=== PATIENT | male | born 1955 | race Caucasian/White ===

== ENCOUNTER → 2016-08-18 | Outpatient (CLI) | payer BC | END | disposition home or self-care (01) | LOC: LABWHC1 12:49 | PROVIDERS: ATTEND Internal Medicine Cardiovascular Disease | DX: I25.10 Atherosclerotic heart disease of native coronary artery without angina pectoris (principal) | CPT/HCPCS: 36415; 83704 ==

== ENCOUNTER → 2017-03-22 | Outpatient (CLI) | payer BC ==
[2017-03-22 13:40] LABS: ALT 32 U/L (21-72); AST 21 U/L (17-59); Creatine Kinase 72 U/L (55-170)
[2017-03-27 13:40] LABS: Large VLDL Particle Number,NMR <1.5 nmol/L (<=2.7)
== END | disposition home or self-care (01) ==
LOC: LABWHC1 12:59
PROVIDERS: ATTEND Internal Medicine Cardiovascular Disease
DX: E78.2 Mixed hyperlipidemia (principal)
CPT/HCPCS: 36415; 82550; 83704; 84450; 84460

== ENCOUNTER → 2018-02-19 | Outpatient (CLI) | payer BC ==
[2018-02-19 13:15] LABS: Blood Urea Nitrogen 21 mg/dL (9-20)
== END | disposition home or self-care (01) ==
LOC: LABWHC1 12:05
PROVIDERS: ATTEND Midwife
DX: E66.9 Obesity, unspecified (principal); Z68.39 Body mass index [BMI] 39.0-39.9, adult
CPT/HCPCS: 36415; 82565; 84520

== ENCOUNTER → 2018-02-20 | Outpatient (CLI) | payer BC ==
--- NOTE | 2018-02-20 22:08 | MR ---
EXAMINATION TYPE: MR lumbar spine wo/w con DATE OF EXAM: 02/20/2018 COMPARISON: CT abdomen pelvis 07/15/2014 HISTORY: Sciatica TECHNIQUE: Multiplanar, multisequence images of the lumbar spine were acquired utilizing [address] gadolinium contrast. L5 appears sacralized. Recommend correlation prior to any intervention. L1-L2: Normal disc appearance without desiccation. No herniation, protrusion or disc bulging. No ca nal stenosis is present. Foramina are patent bilaterally. L2-L3: Posterior broad-based disc bulge causes mild anterior mass effect on the thecal sac. No signif icant central stenosis or foraminal encroachment. L3-L4: Posterior broad-based disc bulge causes anterior mass effect on the thecal sac. There is facet arthropathy with hypertrophy of ligamentum flavum causing only slight central canal stenosis, circum ferential extension of endplate disc complex results in some foraminal encroachment. L4-L5: There is loss of disc height and signal, anterolisthesis grade 1 is present which contributes with circumferential extension of endplate disc complex to cause some mild foraminal encroachment. Th ere is facet arthropathy and broad-based posterior disc bulge may contact the anterior thecal sac, no significant central stenosis. L5-S1: Normal disc appearance without desiccation. No herniation, protrusion or disc bulging. No ca nal stenosis is present. Foramina are patent bilaterally. Lumbar segments are intact. No paraspinal masses are identified. Conus medullaris has a normal appe arance. No abnormal enhancement following contrast administration. IMPRESSION: Degenerative disc disease and facet arthropathy, foraminal encroachment as described. Sacralized L5.
== END | disposition home or self-care (01) ==
LOC: RADMRIMAIN 07:49
PROVIDERS: ATTEND Family Medicine
DX: M51.36 Other intervertebral disc degeneration, lumbar region (principal); M46.86 Other specified inflammatory spondylopathies, lumbar region
CPT/HCPCS: 72158; A9581

== ENCOUNTER → 2018-05-18 | Outpatient (CLI) | payer BC ==
[2018-05-21 17:35] LABS: Large VLDL Particle Number,NMR 3.2 nmol/L (<=2.7)
== END | disposition home or self-care (01) ==
LOC: LABWHC1 11:49
PROVIDERS: ATTEND Internal Medicine Cardiovascular Disease
DX: E78.5 Hyperlipidemia, unspecified (principal)
CPT/HCPCS: 36415; 83704

== ENCOUNTER → 2018-05-25 | Outpatient (CLI) | payer BC ==
--- NOTE | 2018-05-25 07:47 | CT ---
EXAMINATION TYPE: CT sinus wo con DATE OF EXAM: 05/25/2018 COMPARISON: None HISTORY: chronic sinusitis CT DLP: 605.[address] of the paranasal sinuses was performed in the axial and coronal planes. Bone and soft tissue settings are submitted. The paranasal sinuses demonstrate normal aeration and development. Moderate mucosal thickening involving the bilateral maxillary sinuses as well as the ethmoid air cell s. Mild mucosal thickening involving the left frontal sinus and sphenoid sinus. The osteal meatal units are patent bilaterally. The nasal septum is midline. No bony destructive changes are seen within the field of view. IMPRESSION: Mild to moderate chronic pansinusitis.
== END | disposition home or self-care (01) ==
LOC: RADCTMAIN 06:59
PROVIDERS: ATTEND Otolaryngology
DX: J32.4 Chronic pansinusitis (principal)
CPT/HCPCS: 70486

== ENCOUNTER → 2018-06-07 | Outpatient (CLI) | payer BC ==
--- NOTE | 2018-06-07 09:09 | CT ---
EXAMINATION TYPE: CT lumbar spine wo con DATE OF EXAM: 06/07/2018 COMPARISON: HISTORY: Chronic low back pain CT DLP: [address] of the lumbar spine was performed. Bone and soft tissue window settings are submitted as well as coronal and sagittal reconstructions. L1-L2: Normal disc space height. No disc herniation protrusion or central stenosis. No facet joint arthropathy. No evidence for foraminal encroachment. L2-L3: Mild degenerative disc space narrowing. Mild posterior disc bulge. No evidence of herniation p rotrusion or central stenosis. Facet joint arthropathy on the right. L3-L4: Mild degenerative disc space narrowing. Circumferential disc bulge greatest posteriorly. Mild effacement ventral thecal sac. Bilateral lateral recess stenosis suspected. No evidence for central s tenosis or herniation. Mild bilateral foraminal encroachment. L4-L5: Mild to moderate degenerative disc space narrowing. Grade 1 anterolisthesis L4 on L5. Anteroli sthesis measures 4 mm. Posterior disc bulge without evidence of herniation or central stenosis. No ev idence for foraminal encroachment. Moderate facet joint arthropathy. L5-S1: Partial sacralization of the S1. Disc space has a normal appearance. No paraspinal masses are identified. Lumbar segments are free if fracture. IMPRESSION: 1. Degenerative disc space narrowing and disc bulging as noted above.
--- NOTE | 2018-06-07 09:22 | XR ---
EXAMINATION TYPE: XR lumbosacral spine min 4V DATE OF EXAM: 06/07/2018 CLINICAL HISTORY: pain COMPARISON: NONE TECHNIQUE: Frontal, lateral, and oblique images of the lumbar spine are obtained. FINDINGS: There are 5 lumbar type vertebral bodies identified. The lumbar spine shows satisfactory alignment without evidence of acute fracture or dislocation. Vertebral body heights are within normal limits. Moderate to severe degenerative narrowing at L5-S1. Grade 1 anterolisthesis of 4 mm. Severe facet joint arthropathy. Foraminal encroachment. Partial lumbarization of S1 noted. Remaining levels are within normal limits. Ventral spondylosis identified. The overlying soft tissue appears unremar kable. IMPRESSION: No acute fracture or dislocation is seen in the lumbar spine.ICD 10 NO FRACTURE, INITIAL EVALUATION
--- NOTE | 2018-06-07 14:05 | NM ---
EXAMINATION TYPE: NM bone scan whole body DATE OF EXAM: 06/07/2018 COMPARISON: CT scan 06/07/2018 HISTORY: Low back pain Delayed whole-body scanning was performed following the injection of mCi Tc 99m MDP. Images acquired 3 hours post injection. Anterior posterior full body images, bilateral oblique views of the lumbar s pine and thoracic spine were obtained. FINDINGS: photopenic defect involving the right knees compatible with previous surgery. Abnormal uptake involvi ng the right shoulder likely post arthritic or remote trauma. Abnormal uptake involving the feet like ly post arthritic. There is abnormal uptake throughout the cervical, thoracic and lumbar spine which is nonspecific. Upt starr does correspond to degenerative changes seen by recent CT scan. IMPRESSION: 1. Abnormal uptake throughout the vertebral column likely degenerative.
== END | disposition home or self-care (01) ==
LOC: RADCTMAIN 08:00
PROVIDERS: ATTEND Neurological Surgery
DX: M48.061 Spinal stenosis, lumbar region without neurogenic claudication (principal); M51.26 Other intervertebral disc displacement, lumbar region; R93.7 Abnormal findings on diagnostic imaging of other parts of musculoskeletal system
CPT/HCPCS: 72110; 72131; 78306; A9503

== ENCOUNTER → 2019-06-28 | Outpatient (CLI) | payer BC ==
[2019-07-01 18:27] LABS: Large VLDL Particle Number,NMR 3.5 nmol/L (<=2.7)
== END | disposition home or self-care (01) ==
LOC: LABWHC1 12:01
PROVIDERS: ATTEND Internal Medicine Cardiovascular Disease
DX: E78.5 Hyperlipidemia, unspecified (principal)
CPT/HCPCS: 36415; 83704

== ENCOUNTER 2020-01-29 09:31 | Day surgery (SDC) | payer BC ==
[2020-01-27 11:39] VITALS: BMI 32.3
--- NOTE | 2020-01-29 07:48 | P.GSHP ---
History of Present Illness H&P Date: 01/29/20 CHIEF COMPLAINT: Colon screen HISTORY OF PRESENT ILLNESS: The patient is a 64-year-old male who presents for colon screen. Lower endoscopy was offered for further evaluation and management. PAST MEDICAL HISTORY: Please see list. PAST SURGICAL HISTORY: Please see list. MEDICATIONS: Please see list. ALLERGIES: Please see list. SOCIAL HISTORY: No illicit drug use FAMILY HISTORY: No reports of Crohn disease or ulcerative colitis. REVIEW OF ORGAN SYSTEMS: CONSTITUTIONAL: No reports of fevers or chills. PHYSICAL EXAM: VITAL SIGNS: Stable GENERAL: Well-developed pleasant in no acute distress. HEENT: No scleral icterus. Extraocular movements grossly intact. Moist buccal mucosa. NECK: Supple without lymphadenopathy. CHEST: Unlabored respirations. Equal bilateral excursions. CARDIOVASCULAR: Regular rate and rhythm. Distal 2+ pulses. ABDOMEN: Soft, nontender, nondistended. MUSCULOSKELETAL: No clubbing, cyanosis, or edema. ASSESSMENT: 1. Colon screen. PLAN: 1. Recommend proceeding with a lower endoscopy Past Medical History Past Medical History: GERD/Reflux, Hyperlipidemia, Hypertension, Osteoarthritis (OA) Additional Past Medical History / Comment(s): chronic back pain History of Any Multi-Drug Resistant Organisms: None Reported Past Surgical History: Appendectomy, Joint Replacement, Tonsillectomy Additional Past Surgical History / Comment(s): colonoscopy, right knee replaced, nasal surg. Past Anesthesia/Blood Transfusion Reactions: No Reported Reaction Smoking Status: Never smoker Medications and Allergies Home Medications Medication Instructions Recorded Confirmed Type Esomeprazole Magnesium [NexIUM] 40 mg PO DAILY 07/15/14 01/27/20 History Metoprolol Tartrate [Lopressor] 50 mg PO BID 07/15/14 01/27/20 History Atorvastatin [Lipitor] 20 mg PO HS 01/27/20 01/27/20 History Enalapril [Vasotec] 5 mg PO DAILY 01/27/20 01/27/20 History Allergies Allergy/AdvReac Type Severity Reaction Status Date / Time No Known Allergies Allergy Verified 01/27/20 11:36
[~2020-01-29 09:31] MED LIST: LACTATED RINGERS 1,000 ML IV SCH; LIDOCAINE 1% (10MG/ML) FOR IV START INTRADERMA PRN
[2020-01-29 09:52] VITALS: TEMP 97.8
[2020-01-29] MEDS ORDERED: LACTATED RINGERS 1,000 ML IV ONE (09:53)
[2020-01-29] MEDS ORDERED: PROPOFOL 10 MG/ML 20 ML VIAL IV ONE (10:22)
[2020-01-29 10:49] VITALS: RESP 17
[2020-01-29 11:01] VITALS: BP 121/83; PULSE 66
--- NOTE | 2020-01-29 11:03 | P.PCN ---
Date of Procedure: 01/29/20 Description of Procedure: PREOPERATIVE DIAGNOSIS: Colonoscopy screening POSTOPERATIVE DIAGNOSIS: Descending colon polyps Sigmoid colon polyp Sigmoid diverticulosis OPERATION: Colonoscopy to the ileocecal valve and appendiceal orifice, cecum Colonoscopy with cold forceps biopsies SURGEON: Kamille Estrada MD. ANESTHESIA: MAC. INDICATIONS: The patient is an 64-year-old male who presents for colonoscopy screening. Last colonoscopy over 5 years. Benefits and risks were described and informed co nsent was obtained. DESCRIPTION OF PROCEDURE: The patient had undergone Suprep. He had been brought into the operating room and laid in the left lateral decubitus position. After adequate intravenous sedation, the rectum was examined with 2% lidocaine jelly. The prostate was unremarkable. No external hemorrhoids were encountered. The rectal tone was within normal limits. No lesions were palpated in the rectal vault. An Olympus colonoscope was advanced until the cecum, ileocecal valve and appendiceal orifice were clearly viewed. The prep was good. Moderate to severe sigmoid was found. Multiple colonic polyps were found and removed with cold forceps. No evidence of focal colitis was found. Retroflexion of the scope demonstrated grade 1 internal hemorrhoids without active bleeding or inflammation. The colon was desufflated. The patient had tolerated the procedure well. Withdrawal time was over 6 minutes. FINDINGS: Aronchick preparation quality scale 2 (1-5) Internal hemorrhoids, grade 1 No external hemorrhoids. No arteriovenous malformations. Sigmoid diverticulosis, moderate to severe Removal of 3 polyps: - Cold forceps biopsy at 20 cm from the anal verge, 4 mm polyp, sigmoid colon - Cold forceps biopsy at 60 cm from the anal verge x 2, 3 to 5 mm polyp, ascending colon No focal colitis. RECOMMENDATIONS: Repeat colonoscopy 3 years, 2022 Plan - Discharge Summary Discharge Rx Participant: No New Discharge Prescriptions: Continue Metoprolol Tartrate [Lopressor] 50 mg PO BID Esomeprazole Magnesium [NexIUM] 40 mg PO DAILY Enalapril [Vasotec] 5 mg PO DAILY Atorvastatin [Lipitor] 20 mg PO HS Discharge Medication List Esomeprazole Magnesium [NexIUM] 40 mg PO DAILY 07/15/14 [History] Metoprolol Tartrate [Lopressor] 50 mg PO BID 07/15/14 [History] Atorvastatin [Lipitor] 20 mg PO HS 01/27/20 [History] Enalapril [Vasotec] 5 mg PO DAILY 01/27/20 [History] Follow up Appointment(s)/Referral(s): Kamille Estrada MD [STAFF PHYSICIAN] - As Needed Patient Instructions/Handouts: Diverticulitis Diet (GEN), Diverticulosis (DC) Activity/Diet/Wound Care/Special Instructions: Repeat colonoscopy, 3 years 2022 Discharge Disposition: HOME SELF-CARE
== END 2020-01-29 11:50 | disposition home or self-care (01) ==
LOC: ORWHC2ENDO 09:31
PROVIDERS: ATTEND Surgery Plastic and Reconstructive Surgery
DX: Z12.11 Encounter for screening for malignant neoplasm of colon (principal); K57.30 Diverticulosis of large intestine without perforation or abscess without bleeding; K63.5 Polyp of colon; K64.0 First degree hemorrhoids; K21.9 Gastro-esophageal reflux disease without esophagitis; E78.5 Hyperlipidemia, unspecified; I10 Essential (primary) hypertension; M19.90 Unspecified osteoarthritis, unspecified site; G89.29 Other chronic pain; M54.9 Dorsalgia, unspecified; Z90.49 Acquired absence of other specified parts of digestive tract; Z90.89 Acquired absence of other organs; Z79.899 Other long term (current) drug therapy
CPT/HCPCS: 88305; 45380; J2704

== ENCOUNTER → 2020-07-01 | Outpatient (CLI) | payer BC ==
[2020-07-01 20:22] LABS: Chol/HDL Ratio 2.16
== END | disposition home or self-care (01) ==
LOC: LABWHC1 11:19
PROVIDERS: ATTEND Internal Medicine Cardiovascular Disease
DX: E78.5 Hyperlipidemia, unspecified (principal)
CPT/HCPCS: 36415; 80061

== ENCOUNTER → 2021-12-14 | Outpatient (CLI) | payer BC ==
[2021-12-14 18:31] LABS: Basophils # (A) 0.03 X 10*3/uL (0.00-0.10); Basophils % (A) 0.5 %; Eosinophils # (A) 0.13 X 10*3/uL (0.04-0.35); Eosinophils % (A) 2.3 %; HCT 43.6 % (39.6-50.0); HGB 14.3 g/dL (13.0-17.0); Immature Grans, Automated 0.2 %; Lymphocytes # (A) 1.13 X 10*3/uL (0.90-5.00); Lymphocytes % (A) 20.1 %; MCH 32.1 pg (27.0-32.0); MCHC 32.8 g/dL (32.0-37.0); Mean Platelet Volume 10.6 fL (9.5-12.2); Monocytes # (A) 0.52 X 10*3/uL (0.20-1.00); Monocytes % (A) 9.3 %; NRBC Per 100 WBC 0 /100 WBCS (0.0-0.0); Neutrophils # (A) 3.79 X 10*3/uL (1.80-7.70); Neutrophils % (A) 67.6 %; Platelet Count 207 X 10*3/uL (140-440); RBC 4.45 X 10*6/uL (4.40-5.60); RDW 13.2 % (11.5-14.5); WBC 5.61 X 10*3/uL (4.50-10.00)
[2021-12-14 19:43] LABS: ALT 33 U/L (10-49); AST 32 U/L (14-35); African American GFR (CKD) 119.4 (60.0-200.0); Albumin 4.4 g/dL (3.8-4.9); Albumin/Globulin Ratio 1.84 (1.60-3.17); Alkaline Phosphatase 81 U/L (41-126); BUN/Creat Ratio 33.55 Ratio (12.00-20.00); Blood Urea Nitrogen 20.6 mg/dL (9.0-27.0); Calcium 9.3 mg/dL (8.7-10.3); Chloride 104 mmol/L (96-109); Chol/HDL Ratio 2.26 Ratio; Globulin 2.4 g/dL (1.6-3.3); Glucose 95 mg/dL (70-110); LDL Cholesterol,Calculated 75.4 mg/dL (0.0-131.0); Non-African American GFR(CKD) 103.1 (60.0-200.0); Sodium 141 mmol/L (135-145); Total Protein 6.8 g/dL (6.2-8.2)
== END | disposition home or self-care (01) ==
LOC: LABWHC1 11:11
PROVIDERS: ATTEND Family Medicine
DX: Z12.5 Encounter for screening for malignant neoplasm of prostate (principal); E78.5 Hyperlipidemia, unspecified
CPT/HCPCS: 36415; 80053; 80061; 84153; 84443; 85025

== ENCOUNTER 2023-11-08 10:50 | Day surgery (SDC) | payer BC ==
[2023-11-08 11:32] VITALS: TEMP 97.9
[2023-11-08] MEDS: IV FLUID CONTINUATION 1,000 ML IV ONE (11:33)
[2023-11-08] MEDS: LACTATED RINGERS 1,000 ML IV SCH (11:33)
[2023-11-08] MEDS ORDERED: PROPOFOL 10 MG/ML 20 ML VIAL IV ONE (12:12)
--- NOTE | 2023-11-08 12:32 | P.PCN ---
Date of Procedure: 11/08/23 Procedure(s) Performed: BRIEF HISTORY: Patient is a 67-year-old pleasant white male scheduled for an elective colonoscopy as a part of evaluation by history of colon polyps and family history of colon cancer. His father was diagnosed with colon cancer at age 70. PROCEDURE PERFORMED: Colonoscopy with biopsy. PREOPERATIVE DIAGNOSIS: History of colon polyps and family history of colon cancer. IV sedation per Anesthesia. PROCEDURE: After informed consent was obtained, the patient, was brought into [facility] endoscopy unit. IV sedation was administered by Anesthesia under continuous monitoring. Digital rectal examination was normal. Initially the Olympus CF-160 flexible video colonoscope was then inserted in the rectum, gradually advanced into the cecum without any difficulty. Careful examination was performed as the scope was gradually being withdrawn. Ileocecal valve and the appendiceal orifice were visualized and appeared normal. Prep was excellent. Mucosa of the cecum, appeared normal. The ascending colon there was a 3 to 4 mm polyp that was removed by cold biopsy. Rest of the ascending colon, transverse colon, descending colon, sigmoid colon, and rectum appeared normal. Retroflexion was performed in the rectum and no lesions were seen as diverticulosis seen.. The patient tolerated the procedure well. IMPRESSION: 3 to 4 mm ascending colon polyp status post removal by cold biopsy Scattered left-sided diverticulosis. RECOMMENDATIONS: Findings of this examination were discussed with the patient as well as his family. He was advised to follow-up with the biopsy results. Recommend repeat screening colonoscopy in 5 years because of the family history of colon cancer
[2023-11-08 12:46] VITALS: RESP 16
[2023-11-08 12:47] VITALS: BP 170/88; PULSE 64
== END 2023-11-08 13:16 | disposition home or self-care (01) ==
LOC: ORWHC2ENDO 10:50
PROVIDERS: ATTEND Internal Medicine Gastroenterology
DX: Z12.11 Encounter for screening for malignant neoplasm of colon (principal); K63.5 Polyp of colon; K57.30 Diverticulosis of large intestine without perforation or abscess without bleeding; I10 Essential (primary) hypertension; E78.5 Hyperlipidemia, unspecified; K21.9 Gastro-esophageal reflux disease without esophagitis; Z80.0 Family history of malignant neoplasm of digestive organs; Z86.010 Personal history of colon polyps; Z79.899 Other long term (current) drug therapy
CPT/HCPCS: 88305; 45380; J2704